=== PATIENT | female | born 1965 | race Caucasian/White ===

== ENCOUNTER 2020-04-24 16:07 | Outpatient (CLI) | payer BC, SELFPAY ==
--- NOTE | 2020-04-24 15:45 | US_ITS ---
WS: [id number] RENAL ULTRASOUND REASON FOR EXAM: RENAL U/S@[facility] 04/23/20@8:30AM. APPT TO FOLLOW TECHNIQUE: Grayscale and Doppler ultrasound examination of the kidneys. FINDINGS: Right kidney: Right kidney measures 11.9 cm x 4.3 cm x 4.5 cm. Cortex measured 1.11 cm along the surf leonidas of the right kidney a cyst measures 1.74 x 1.11 x 1.15 cm. Left kidney: Left kidney measures 9.8 cm x 5.3 cm x 5.5 cm. . No definite calcification to suggest r enal calculus. Additional cyst measures 0.97 cm x 0.80 cm x 1.14 cm.., A third cyst measures 0.94 x 1.02 x 1.01 cm. Cortex measures 1.66 cm The liver suggests fatty infiltration. The abdominal aorta was normal 1.89 cm. The urinary bladder was contracted IMPRESSION: Multiple benign-appearing cysts in both kidneys Normal size of both kidneys Normal cortex bilaterally Fatty infiltration of the liver
== END 2020-04-24 16:08 | disposition home or self-care (01) ==
LOC: RAD 16:18
PROVIDERS: PCP Nurse Practitioner Family; Visit Provider Urology
DX: N28.89 Other specified disorders of kidney and ureter (principal); N28.1 Cyst of kidney, acquired; K76.0 Fatty (change of) liver, not elsewhere classified
CPT/HCPCS: 76770

== ENCOUNTER → 2020-04-25 08:06 | Outpatient (BNVA) | payer BC, SELFPAY | PROVIDERS: PCP Nurse Practitioner Family; Visit Provider Urology | DX: N39.0 Urinary tract infection, site not specified (principal); B95.2 Enterococcus as the cause of diseases classified elsewhere; N28.1 Cyst of kidney, acquired | CPT/HCPCS: 81001 ==

== ENCOUNTER 2020-09-14 14:38 | Emergency (ER) | payer BC, SELFPAY ==
[2020-09-14 14:49] VITALS: BP 99/66; PULSE 91; RESP 20; TEMP 37.4; O2SAT 96; BMI 34.3
--- NOTE | 2020-09-14 15:00 | ECG_ITS ---
[facility] Test Date: 2020-09-14 Pat Name: Katherine Chavez Department: Room: Gender: Female Day Care Assistant: : 1965 Requested By: Huma De Order Number: [id number] Fernanda Mclaughlin MD: Gabe Rollins M.D. Measurements Intervals Ramsay Rate: 84 P: 67 AK: 143 QRS: 66 QRSD: 81 T: 88 QT: 370 QTc: 440 Interpretive Statements SINUS RHYTHM POSSIBLE LEFT ATRIAL ENLARGEMENT [-0.1mV P WAVE IN V1/V2] NONSPECIFIC ST & T-WAVE ABNORMALITY INTERPRETATION BASED ON A DEFAULT AGE OF 40 YEARS Compared to ECG 03/23/2018 10:42:52 No significant changes Electronically Signed On 09-14-2020 20:35:31 CDT by Gabe Rollins M.D. [id number]
--- NOTE | 2020-09-14 15:00 | XR_ITS ---
WS: [id number] Portable AP upright chest, 09/14/2020 Clinical Data: Dyspnea Comparison: Portable chest, 03/23/2018. Findings: No nodules, masses or effusions are seen. The heart is normal. The pulmonary vascularity is not increased. No pneumonia or pneumothorax is seen. The diaphragms are flattened. XR/XR chest 1V portable [id number] Impression: Hyperinflation.
[2020-09-14 15:26] LABS: ABG PCO2 35.6 mmHg (35-45); ABG PH Result 7.47 (7.35-7.45); Arterial Blood Gas Hematocrit 47.2 % (37-47); Base Excess ABG 2.3 mmol/L (-2.0-2.0); Blood Gas Allen Test Pos; Blood Gas Sample Type Arterial; HCO3 ABG 25.7 mmol/L (22-26); PO2 ABG 79.2 mmHg (80.0-100.0)
[2020-09-14 15:27] LABS: Blood Gas Operator Identificat ED; Blood Gas Sample Site Radial, left; Oxygen Device ROOM AIR
--- NOTE | 2020-09-14 15:35 | W.ED.COVID ---
HPI - COVID General: Chief Complaint: COVID symptoms Stated Complaint: COVID+, IN COVID TRIAGE ROOM Time Seen by Provider: 09/14/20 14:59 Source: patient Limitations: no limitations Triage information: Has fever, cough or shortness of breath. Exposure to COVID + person last 14 days History of Present Illness: HPI Narrative: Katherine is a 55-year-old female who comes in complaining of worsening generalized weakness, nausea, loss of appetite and shortness of breath. Patient has had symptoms for the past 6 days and 3 days into this illness she had a test which proved her to be positive for the Covid virus. Patient claims to have COPD and asthma which she said has been made worse by this virus. She has had a fever and worsening generalized flulike symptoms. Patient states she has been monitoring her pulse oximetry at home and she has been frequently finding herself in the mid to low 80s. She denies any hemoptysis she denies any chest pain. COVID 19 common symptoms: positive fever(s), chills, non-productive cough, dyspnea, fatigue and body aches; negative productive cough, headache(s), throat pain, nausea, vomiting or diarrhea COVID 19 other sytmptoms: negative chest pain or confusion COVID Results: No Data to Display Review of Systems Const: Reports: fever(s), chills, body aches, fatigue and malaise; Denies: diaphoresis Eyes: Denies: change in vision, blurry vision, photophobia, eye discomfort, eye discharge, eye redness or yellow eyes ENMT: Denies: throat pain, odynophagia, hoarseness, swelling of lips/tongue, ear or mastoid pain, ear discharge, change in hearing or nasal discharge Card: Denies: chest pain, palpitations, irregular heart rhythm, edema, lightheadedness, syncope, pre-syncope, dyspnea on exertion or orthopnea Resp: Reports: dyspnea and non-productive cough; Denies: productive cough, wheezing, hemoptysis or chest congestion GI: Denies: abdominal pain, nausea, vomiting, hematemesis, coffee ground emesis, heartburn, diarrhea, constipation, GI cramping, hematochezia or melena : Denies: flank pain, dysuria, urinary frequency, urinary urgency or hematuria Musc: Denies: neck pain, back pain, extremity pain, extremity swelling, joint pain, joint swelling, joint redness, joint warmth or joint stiffness Skin/Breast: Denies: rash, pruritus, erythema, skin pain or skin tenderness Neuro: Denies: headache(s), numbness in extremities, weakness in extremities, sensory changes, lack of coordination, difficulty walking, dizziness, vertigo, confusion, Slurred speech present or seizure-like activity Satya/Lymph: Denies: easy bruising, easy bleeding, petechiae, purpura or enlarged lymph nodes All/Imm: Denies: urticaria, throat swelling, tongue swelling, facial swelling or acute wheezing PFSH ED PFSH: Medical History Carcinoid bronchial adenoma of left lung Dyslipidemia Renal cyst Bilateral simple renal cysts. Confirmed with multiple modalities. No further work-up recommended April 2020. Tachycardia Surgical History H/O hernia repair abdominal H/O thyroidectomy S/P lobectomy of lung Family History Father , at age 90 Cancer Hyperlipidemia Hypertension Lung disease Mother , at age 60 Cancer Diabetes Hypertension Sister Psychiatric illness Denies family history of CAD (coronary artery disease) Clotting disorder Dementia Chronic kidney disease (CKD) Suicide Anesthesia complication Bleeding disorder Family history of premature coronary artery disease Stroke Social History Smoking and tobacco status: former smoker Quit status (tobacco): has quit using tobacco Second hand smoke exposure: No Alcohol intake: former Marital status: Current occupational status: retired History of recent travel: No Physical Exam Const: COMMON NORMALS: no acute distress, patient oriented x3, no limitations and alert GENERAL APPEARANCE: cooperative HENMT: COMMON NORMALS: normocephalic, atraumatic, external ears normal, EAC's normal and Normal external nose present HEAD & SCALP: normal to inspection, normocephalic and atraumatic FACE & SINUS: normal facial exam and face symmetric NOSE: Normal external nose present and Normal nares present EXTERNAL EAR: Yes external ears normal EXTERNAL AUDITORY CANAL: EAC's normal MOUTH: Normal oral and palatal mucosa present, lip normal and tongue normal Eye: COMMON NORMALS: Equal, round and reactive pupils present and conjunctivae normal GENERAL EYE: appearance normal, both eyes and all related structures ALIGNMENT: Yes alignment normal PERIORBITAL: periorbital findings normal EYELID: eyelids normal CONJUNCTIVA: Yes conjunctivae normal SCLERA: sclerae normal PUPIL: Yes Equal, round and reactive pupils present Neck/C-Spine: COMMON NORMALS: full ROM, no lymphadenopathy, supple, no meningeal signs and no JVD GENERAL: Yes normal visual inspection and Yes trachea midline Chest: COMMONS NORMALS: normal inspection of the chest and normal palpation of entire chest wall Resp: COMMON NORMALS: normal respiratory effort, No retractions, No use of accessory muscles and clear to auscultation bilaterally EFFORT & INSPECTION: Yes able to speak in complete sentences and Yes symmetric chest movement AUSCULTATION: clear to auscultation bilaterally, no crackles, no rales, no rhonchi and no wheezes Cardio: COMMON NORMALS: no JVD, regular rate, regular rhythm, S1 normal heart sound present and S2 normal heart sound present RATE: regular rate RHYTHM: regular rhythm HEART SOUNDS: S1 normal heart sound present, S2 normal heart sound present, no click, no gallops, no murmurs and no rubs GI: COMMON NORMALS: Soft to palpation and No hepatosplenomegaly present PALPATION: Yes Soft to palpation, No Tenderness to palpation present (GI), No Guarding due to palpation present (GI), No Rigid due to palpation, Yes No hepatosplenomegaly present, No Hernia present, No Palpable mass present and No Pulsatile mass present : COMMON NORMALS: Yes no CVA tenderness BLADDER/KIDNEY EXAM: Yes no CVA tenderness EXTERNAL FEMALE EXAM: No Hernia present Back/Pelvis: COMMON NORMALS: no CVA tenderness, thoracic and lumbar spine normal to inspection, no thoracic nor lumbar tenderness and thoraco-lumbar ROM normal Extremity: COMMON NORMALS: normal to inspection, full ROM, capillary refill normal, no joint enlargement, no clubbing, cyanosis or edema and no calf tenderness Neuro: COMMON NORMALS: patient oriented x3, CN's II-XII intact bilaterally, moves all extremities, no focal motor deficits and no sensory deficits noted SENSORIUM/ORIENTATION: Yes alert MENINGEAL SIGNS: Yes no meningeal signs SPEECH: speech normal Psych: COMMON NORMALS: mental status grossly normal, Normal thought process present, cooperative, normal affect, speech normal and activity/motor behavior normal SPEECH: Yes normal speech THOUGHT PROCESS: Normal thought process present Skin: COMMON NORMALS: no rashes or lesions noted, turgor normal, no jaundice, no petechiae and no mottling GENERAL SKIN EXAM: no rashes or lesions noted and turgor normal Course Vital Signs: Vital signs: Vital Signs Temperature 99.3 F 09/14/20 14:49 Pulse Rate 91 09/14/20 14:49 Respiratory Rate 20 H 09/14/20 14:49 Blood Pressure 99/66 09/14/20 14:49 Pulse Oximetry 96 09/14/20 17:33 MDM - COVID MDM Narrative Medical decision making narrative: Katherine is a very nice 55-year-old female comes in complaining of increasing shortness of breath since being diagnosed with a Covid virus. She is 5 to 6 days into this illness and does not show any sign of hypoxia here. Her pulse ox on room air is been in the high 90s the entire time she has been here. There chest x-ray is not tremendously remarkable and her lung sounds are clear. Patient's inflammatory markers are not tremendously elevated. She failed a home O2 eval so she does not qualify for home oxygen. Patient agrees to return if she worsens but otherwise she will follow-up with her regular doctor. She is already on steroids at home and she agrees to continue those. Lab Data Attestation: I reviewed the patient's lab results. Result diagrams: 09/14/20 16:24 09/14/20 16:24 Labs: Lab Results 09/14/20 09/14/20 09/14/20 Range/Units 15:16 16:24 16:24 WBC 12.1 H (4.0-10.0) 10^3/uL RBC 5.04 (4.1-5.3) 10^6/uL Hgb 15.3 (11.5-15.3) g/dL Hct 46.1 (37.0-47.0) % MCV 91.5 (81-99) fL MCH 30.4 (28.0-34.0) pg MCHC 33.2 (30.0-36.0) g/dL RDW 13.2 (12.1-15.1) % Plt Count 206 (130-400) 10^3/cmm MPV 11.6 H (7.4-10.4) fL Neut % (Auto) 86.2 % Lymph % (Auto) 6.0 % [place] % (Auto) 6.9 % Eos % (Auto) 0.0 % Baso % (Auto) 0.2 % Neut # (Auto) 10.44 H (1.8-7.7) 10^3/uL Lymph # (Auto) 0.7 L (0.8-4.8) 10^3/uL [place]ug[place] # (Auto) 0.8 (0.2-0.9) 10^3/uL Eos # (Auto) 0.0 (0.0-0.8) 10^3/uL Baso # (Auto) 0.0 (0.0-0.1) 10^3/uL Nucleated RBC % (auto) 0 % Nucleated RBCs # 0.0 /100WBC PT 11.60 L (12.1-14.9) SECONDS INR 0.83 (0.8-1.2) Fibrinogen 574 H (174-498) mg/dL D-Dimer 0.50 (0-0.59) ug/mIFEU Specimen Type Arterial Sample Site Radial, left ABG pH 7.47 H (7.35-7.45) ABG pCO2 35.6 (35-45) mmHg ABG pO2 79.2 L (80.0-100.0) mmHg ABG HCO3 25.7 (22-26) mmol/L ABG Base Excess 2.3 H (-2.0-2.0) mmol/L Guido Test Pos Hematocrit 47.2 H (37-47) % O2 Delivery Device Room air FiO2 21.0 % Retort Setter ID Ed Sodium (136-145) mmol/L Potassium (3.5-5.1) mmol/L Chloride (98-107) mmol/L Carbon Dioxide (22-29) mmol/L Anion Gap (5-19) BUN (6-20) mg/dL Creatinine (0.5-0.9) mg/dL GFR Calculation (90-130) mL/min Glucose (65-115) mg/dL Calculated Osmolality (285-295) mOsm/kg Lactic Acid (0.5-2.2) mmol/L Calcium (8.5-10.5) mg/dL Magnesium (1.7-2.3) mg/dL Total Bilirubin (0.15-1.2) mg/dL AST (0-32) U/L ALT (0-33) U/L Alkaline Phosphatase (35-105) IU/L Lactate Dehydrogenase (135-214) U/L Troponin T Gen 5 ng/L (0-10) ng/L C-Reactive Protein (0.0-4.9) mg/L NT-Pro-B Natriuret Pep (0-125) pg/mL Total Protein (6.6-8.7) g/dL Albumin (3.5-5.2) g/dL Globulin (1.3-4.6) g/dL Procalcitonin (0-0.5) ng/mL 09/14/20 09/14/20 09/14/20 Range/Units 16:24 16:24 16:24 WBC (4.0-10.0) 10^3/uL RBC (4.1-5.3) 10^6/uL Hgb (11.5-15.3) g/dL Hct (37.0-47.0) % MCV (81-99) fL MCH (28.0-34.0) pg MCHC (30.0-36.0) g/dL RDW (12.1-15.1) % Plt Count (130-400) 10^3/cmm MPV (7.4-10.4) fL Neut % (Auto) % Lymph % (Auto) % Refug[place] % (Auto) % Eos % (Auto) % Baso % (Auto) % Neut # (Auto) (1.8-7.7) 10^3/uL Lymph # (Auto) (0.8-4.8) 10^3/uL [place]ug[place] # (Auto) (0.2-0.9) 10^3/uL Eos # (Auto) (0.0-0.8) 10^3/uL Baso # (Auto) (0.0-0.1) 10^3/uL Nucleated RBC % (auto) % Nucleated RBCs # /100WBC PT (12.1-14.9) SECONDS INR (0.8-1.2) Fibrinogen (174-498) mg/dL D-Dimer (0-0.59) ug/mIFEU Specimen Type Sample Site ABG pH (7.35-7.45) ABG pCO2 (35-45) mmHg ABG pO2 (80.0-100.0) mmHg ABG HCO3 (22-26) mmol/L ABG Base Excess (-2.0-2.0) mmol/L Guido Test Hematocrit (37-47) % O2 Delivery Device FiO2 % Retort Setter ID Sodium 135 L (136-145) mmol/L Potassium 4.5 (3.5-5.1) mmol/L Chloride 94 L (98-107) mmol/L Carbon Dioxide 26 (22-29) mmol/L Anion Gap 19.5 H (5-19) BUN 20 (6-20) mg/dL Creatinine 0.8 (0.5-0.9) mg/dL GFR Calculation 74.5 L (90-130) mL/min Glucose 329 H (65-115) mg/dL Calculated Osmolality 295 (285-295) mOsm/kg Lactic Acid 2.4 H (0.5-2.2) mmol/L Calcium 9.4 (8.5-10.5) mg/dL Magnesium 1.9 (1.7-2.3) mg/dL Total Bilirubin 0.3 (0.15-1.2) mg/dL AST 26 (0-32) U/L ALT 35 H (0-33) U/L Alkaline Phosphatase 135 H (35-105) IU/L Lactate Dehydrogenase 316 H (135-214) U/L Troponin T Gen 5 ng/L 9 (0-10) ng/L C-Reactive Protein 15.1 H (0.0-4.9) mg/L NT-Pro-B Natriuret Pep 58 (0-125) pg/mL Total Protein 6.8 (6.6-8.7) g/dL Albumin 4.2 (3.5-5.2) g/dL Globulin 2.6 (1.3-4.6) g/dL Procalcitonin 0.08 (0-0.5) ng/mL COVID Results: No Data to Display Imaging Data CXR: Attestation: I personally reviewed and interpreted this imaging study as follows: My impression: Mild interstitial prominence. EKG Data EKG 1: Attestation: I personally reviewed and interpreted this EKG as follows: EKG interpretation date: 09/14/20 EKG interpretation time: 15:10 Interpretation: Normal sinus rhythm at 84 beats a minute, no blocks, normal intervals, normal axis, no acute ST-T wave changes. Discharge Plan Discharge Patient Disposition: Home Clinical Impression: Viral pneumonitis, COVID-19 virus infection Condition: Stable Prescriptions: New albuterol sulfate 90 mcg/actuation HFA aerosol inhaler 2 inh INHALATION Q4H PRN (Reason: shortness of breath or wheezing) Qty: 6.7 RF: 0 No Action Ozempic 0.25 mg or 0.5 mg(2 mg/1.5 mL) pen injector SUBCUT .weekly RF: 0 levothyroxine 50 mcg capsule 50 mcg PO DAILY RF: 0 cyanocobalamin (vitamin B-12) 1,000 mcg capsule 1,000 mcg PO DAILY RF: 0 atorvastatin 40 mg tablet 40 mg PO DAILY RF: 0 albuterol sulfate 2.5 mg /3 mL (0.083 %) solution for nebulization 2.5 mg INHALATION Q6H RF: 0 duloxetine 60 mg capsule,delayed release(DR/EC) 60 mg PO DAILY RF: 0 fluticasone propionate [Flonase Allergy Relief] 50 mcg/actuation spray,suspension 1 spray INTRANASAL DAILY RF: 0 metformin 500 mg tablet 1,000 mg PO BID RF: 0 montelukast 10 mg tablet 10 mg PO DAILY RF: 0 albuterol sulfate [ProAir HFA] 90 mcg/actuation HFA aerosol inhaler 1 inh INHALATION QID RF: 0 acetaminophen [Tylenol Extra Strength] 500 mg tablet 500 mg PO Q6H PRNRF: 0 cholecalciferol (vitamin D3) 10,000 unit tablet 10,000 unit PO DAILY RF: 0 insulin aspart U-100 [Novolog Flexpen U-100 Insulin] 100 unit/mL (3 mL) insulin pen 5 unit SUBCUT .COMPLEX RF: 0 Discharge Orders: Discharge Order (Routine); Ordered 09/14/20 Ordered By: Huma Spence Referrals: Sharmila Abreu FNP-C [Primary Care Provider] - 4-7 days Discharge Diet: Advance as tolerated Discharge Activity: Increase activity as tolerated Patient Instructions: Viral Pneumonia (ED) Activity Restrictions/Additional Instructions: Please return to the ER immediately for any of the signs or symptoms listed on your discharge instruction sheets, worsening/changing of your symptoms, you are not getting better as quickly as expected, or for ANY other cause or concerns. Continue your steroids as previously prescribed. Use your albuterol inhaler as needed. Return to the ER if your pulse oximetry stays below 90% persistently or your symptoms worsen or for any other cause for concern. Coding Level of Care Code ED Junior Database Administrator for Josue Chapman Exam Comprehensive
[2020-09-14 16:11] VITALS: O2SAT 95
[2020-09-14] MEDS: sodium chloride 0.9% 1,000 ML 75 ML IV (16:35)
[2020-09-14] MEDS: ondansetron 2 mg/ML SDV 2 mL 4 MG IV (16:35)
[2020-09-14] MEDS: dexamethasone 4 mg/mL INJ 10 MG IVP (16:35)
[2020-09-14 16:44] LABS: Basophils % 0.2 %; Hematocrit 46.1 % (37.0-47.0); Hemoglobin 15.3 g/dL (11.5-15.3); Lymphocytes # 0.7 10^3/uL (0.8-4.8); Mean Corpuscular HGB Conc 33.2 g/dL (30.0-36.0); Mean Corpuscular Hemoglobin 30.4 pg (28.0-34.0); Mean Corpuscular Volume 91.5 fL (81-99); Mean Platelet Volume 11.6 fL (7.4-10.4); Monocytes # 0.8 10^3/uL (0.2-0.9); Monocytes % 6.9 %; Neutrophils # 10.44 10^3/uL (1.8-7.7); Neutrophils % 86.2 %; Nucleated Red Blood Cells % 0 %; Platelet Count 206 10^3/cmm (130-400); Red Blood Count 5.04 10^6/uL (4.1-5.3); Red Cell Distribution Width 13.2 % (12.1-15.1); White Blood Count 12.1 10^3/uL (4.0-10.0)
[2020-09-14 17:00] LABS: INR 0.83 (0.8-1.2)
[2020-09-14 17:01] LABS: Fibrinogen 574 mg/dL (174-498)
[2020-09-14 17:03] LABS: Lactic Sepsis W/Reflex 2.4 mmol/L (0.5-2.2)
[2020-09-14 17:14] LABS: NT Pro B Type Natriuretic Pept 58 pg/mL (0-125); Procalcitonin 0.08 ng/mL (0-0.5)
[2020-09-14 17:18] LABS: Troponin T (5th) Once 9 ng/L (0-10)
[2020-09-14 17:26] LABS: Alanine Aminotransferase 35 U/L (0-33); Albumin Level 4.2 g/dL (3.5-5.2); Alkaline Phosphatase 135 IU/L (35-105); Anion Gap 19.5 (5-19); Aspartate Amino Transferase 26 U/L (0-32); Blood Urea Nitrogen 20 mg/dL (6-20); C Reactive Protein 15.1 mg/L (0.0-4.9); Calcium 9.4 mg/dL (8.5-10.5); Carbon Dioxide 26 mmol/L (22-29); Chloride 94 mmol/L (98-107); Globulin 2.6 g/dL (1.3-4.6); Glomerular Filtration Rate 74.5 mL/min (90-130); Glucose 329 mg/dL (65-115); Magnesium 1.9 mg/dL (1.7-2.3); Osmolality Calculated 295 mOsm/kg (285-295); Potassium 4.5 mmol/L (3.5-5.1); Sodium 135 mmol/L (136-145); Total Bilirubin 0.3 mg/dL (0.15-1.2); Total Protein 6.8 g/dL (6.6-8.7)
[2020-09-14 17:28] LABS: Lactate Dehydrogenase 316 U/L (135-214)
[2020-09-14 17:33] VITALS: O2SAT 90; O2SAT 96
[2020-09-14 17:58] VITALS: BP 119/75; PULSE 77; RESP 20; O2SAT 98
[2020-09-14 18:26] LABS: Reflex Lactate Order REFLEX LACTIC ORDERD
== END 2020-09-14 17:58 | disposition home or self-care (01) ==
PROVIDERS: Emergency Provider Emergency Medicine; PCP Nurse Practitioner Family
DX: U07.1 COVID-19 (principal); J12.89 Other viral pneumonia; Z79.4 Long term (current) use of insulin; Z87.891 Personal history of nicotine dependence; E78.5 Hyperlipidemia, unspecified
CPT/HCPCS: 12345; 36600; 71045; 80053; 82803; 83605; 83615; 83735; 83880; 84145; 84484; 85025; 85378; 85384; 85610; 86140; 87040; 93005; 96361; 96374; 96375; 99283; 99284; J1100; J2405; J7030

== ENCOUNTER 2020-09-22 18:05 | Emergency (ER) | payer BC, SELFPAY ==
[2020-09-22] VITALS (8 sets, daily range): BP systolic 79–123; BP diastolic 50–66; PULSE 104–110; RESP 14–23; TEMP 37.8; O2SAT 85–95; BMI 35.2
--- NOTE | 2020-09-22 18:29 | XRR_ITS ---
PROCEDURE INFORMATION: Exam: XR Chest, 1 View Exam date and time: 09/22/2020 6:35 PM Age: 55 years old Clinical indication: Shortness of breath; Additional info: SOB TECHNIQUE: Imaging protocol: XR of the chest Views: 1 view. COMPARISON: CR XR chest 1V portable [id number] 09/14/2020 3:15 PM FINDINGS: Lungs: Bilateral peripheral pulmonary infiltrates, right worse than left. Linear fibrosis demonstrated in the lower left lung. Pleural space: No pleural effusion demonstrated. No pneumothorax. Heart/Mediastinum: No cardiomegaly. Bones/joints: Unremarkable. XR/XR chest 1V portable [id number] IMPRESSION: 1. Bilateral peripheral pulmonary infiltrates, right worse than left. Consider nonspecific viral pneumonia. 2. The infiltrates are new when compared to 09/14/2020.
[2020-09-22 18:43] LABS: ABG PCO2 34.2 mmHg (35-45); ABG PH Result 7.54 (7.35-7.45); Arterial Blood Gas Hematocrit 41.2 % (37-47); Base Excess ABG 6.5 mmol/L (-2.0-2.0); Blood Gas Allen Test Pos; Blood Gas Operator Identificat MONRO; Blood Gas Sample Site Brachial, right; Blood Gas Sample Type Arterial; HCO3 ABG 29.1 mmol/L (22-26); HGB O2 Sat 90.4 % (95-100); Methemoglobin 0.9 % (0.4-1.5); Oxygen Device BIPAP; PO2 ABG 52.9 mmHg (80.0-100.0); Total Hemoglobin 13.5 g/dL (12-16)
--- NOTE | 2020-09-22 18:59 | ED_ITS ---
HPI - COVID General: Chief Complaint: COVID symptoms Stated Complaint: RESP DISTRESS Time Seen by Provider: 09/22/20 18:08 Triage information: Has fever, cough or shortness of breath . Exposure to COVID + person last 14 days History of Present Illness: HPI Narrative: 55-year-old lady who was just released from [facility]. She was there with COVID-19 for 5 days. She states that she did okay yesterday, but started having increasing shortness of breath today. She said that she got so short of breath at home that she called the ambulance. She denies any fever. She is got a cough. Nonproductive MD complaint: known COVID positive Prior covid testing: yes, results known COVID 19 common symptoms: positive cough, non-productive cough, dyspnea and headache(s); negative fever(s), nausea or vomiting COVID 19 other sytmptoms: positive requiring oxygen and confusion; negative chest pressure or chest pain Severity: moderate Pertinent comorbid conditions: diabetes and hypertension COVID Results: No Data to Display Review of Systems Const: Denies: fever(s) Card: Denies: chest pain Resp: Reports: dyspnea and non-productive cough GI: Denies: abdominal pain, nausea or vomiting Neuro: Reports: headache(s) and confusion PFS ED PFSH: Medical History (Updated 09/22/20 @ 23:22 by Nakul Vanegas DO) Carcinoid bronchial adenoma of left lung Dyslipidemia Renal cyst Bilateral simple renal cysts. Confirmed with multiple modalities. No further work-up recommended April 2020. Tachycardia Surgical History H/O hernia repair abdominal H/O thyroidectomy S/P lobectomy of lung Family History Father , at age 90 Cancer Hyperlipidemia Hypertension Lung disease Mother , at age 60 Cancer Diabetes Hypertension Sister Psychiatric illness Denies family history of CAD (coronary artery disease) Clotting disorder Dementia Chronic kidney disease (CKD) Suicide Anesthesia complication Bleeding disorder Family history of premature coronary artery disease Stroke Social History Smoking and tobacco status: former smoker Quit status (tobacco): has quit using tobacco Second hand smoke exposure: No Alcohol intake: former Marital status: Current occupational status: retired History of recent travel: No Physical Exam Const: GENERAL APPEARANCE: cooperative, in distress, lethargic and ill appearing ORIENTATION/CONSCIOUSNESS: Yes oriented to person, Yes oriented to place, Yes oriented to time and Yes lethargic HENMT: COMMON NORMALS: normocephalic, external ears normal and Normal external nose present HEAD & SCALP: normocephalic FACE & SINUS: normal facial exam NOSE: Normal external nose present and No nasal discharge present EXTERNAL EAR: Yes external ears normal THROAT: posterior oropharynx normal; no peritonsillar mass Eye: COMMON NORMALS: Equal, round and reactive pupils present, EOMs intact bilaterally and conjunctivae normal EYELID: eyelids normal CONJUNCTIVA: Yes conjunctivae normal PUPIL: Yes Equal, round and reactive pupils present Neck/C-Spine: GENERAL: No tracheal deviation Chest: COMMONS NORMALS: normal inspection of the chest CHEST: No tenderness Resp: COMMON NORMALS: clear to auscultation bilaterally EFFORT & INSPECTION: Yes tachypneic, Yes respiratory distress, No retractions, Yes uses accessory muscles and No tracheal deviation AUSCULTATION: clear to auscultation bilaterally, no rhonchi, no wheezes and diminished lung sounds Cardio: COMMON NORMALS: regular rate and regular rhythm RATE: regular rate RHYTHM: regular rhythm HEART SOUNDS: no murmurs PERIPHERAL PULSES: radial pulses present GI: INSPECTION: No abdominal distension AUSCULTATION: No Hyperactive bowel sounds present and No Hypoactive bowel sounds present PALPATION: No Guarding due to palpation present (GI) and No Rigid due to palpation PERCUSSION: no du llness to percussion and no tympanic to percussion Neuro: SENSORIUM/ORIENTATION: Yes oriented to person, Yes oriented to place, Yes oriented to time and Yes lethargic Psych: COMMON NORMALS: mental status grossly normal Skin: COMMON NORMALS: no rashes or lesions noted GENERAL SKIN EXAM: no rashes or lesions noted Course ED course: 55-year-old patient, known Covid positive. She presents with acute onset of shortness of breath today after being discharged from an outside facility yesterday. She apparently received dexamethasone, unknown or unclear whether she received remdesivir. She did not receive plasma. Room air satur ations were in the low 80s with respiratory distress. On nonrebreather, she came up to the mid 80s. She was placed on BiPAP on arrival with outstanding improvement. Her saturation currently is 97%. Heart rate 100. Blood pressure 98/64. Her inflammatory markers are elevated including a D-dimer over 20. CTA shows no pulmonary embolism but extensive bilateral infiltrates present. We have obtained a Covid positive result that she got as an outpatient. We have no Covid/ICU bed availability at this facility. We spoke with [facility] in [place], and they do have some availability in their [facility]. I spoke with the physician there, and we considered intubation for transport, but the patient is done so well on BiPAP that we would both like to leave her on that. [facility] is the only transport system that will allow patients to be transferred on BiPAP. They have been cleared to come get the patient once we have a bed number. Vital Signs: Vital signs: Vital Signs Temperature 100.1 F H 09/22/20 18:19 Pulse Rate 94 09/23/20 00:53 Respiratory Rate 20 H 09/23/20 00:53 Blood Pressure 103/63 09/23/20 00:53 Pulse Oximetry 97 09/23/20 00:53 MDM - COVID Lab Data Result diagrams: 09/22/20 18:45 09/22/20 18:45 Labs: Lab Results 09/22/20 09/22/20 09/22/20 Range/Units 18:30 18:45 18:45 WBC 12.1 H (4.0-10.0) 10^3/uL RBC 4.70 (4.1-5.3) 10^6/uL Hgb 14.1 (11.5-15.3) g/dL Hct 42.1 (37.0-47.0) % MCV 89.6 (81-99) fL MCH 30.0 (28.0-34.0) pg MCHC 33.5 (30.0-36.0) g/dL RDW 12.7 (12.1-15.1) % Plt Count 253 (130-400) 10^3/cmm MPV 10.7 H (7.4-10.4) fL Neut % (Auto) 80.4 % Lymph % (Auto) 9.4 % Hodgeman % (Auto) 4.1 % Eos % (Auto) 0.4 % Baso % (Auto) 0.6 % Neut # (Auto) 9.72 H (1.8-7.7) 10^3/uL Lymph # (Auto) 1.1 (0.8-4.8) 10^3/uL Hodgeman # (Auto) 0.5 (0.2-0.9) 10^3/uL Eos # (Auto) 0.1 (0.0-0.8) 10^3/uL Baso # (Auto) 0.1 (0.0-0.1) 10^3/uL Nucleated RBC % (auto) 0 % Nucleated RBCs # 0.0 /100WBC D-Dimer >= 20.00 H (0-0.59) ug/mIFEU Specimen Type Arterial Sample Site Brachial, right ABG pH 7.54 H (7.35-7.45) ABG pCO2 34.2 L (35-45) mmHg ABG pO2 52.9 L (80.0-100.0) mmHg ABG HCO3 29.1 H (22-26) mmol/L ABG Base Excess 6.5 H (-2.0-2.0) mmol/L Guido Test Pos Hematocrit 41.2 (37-47) % Hgb O2 Saturation 90.4 L (95-100) % Carboxyhemoglobin 1.0 (0.4-20.1) %THgb Methemoglobin 0.9 (0.4-1.5) % Total Hemoglobin 13.5 (12-16) g/dL O2 Delivery Device Bipap FiO2 100.0 % Piano Mechanic ID Monro Sodium (136-145) mmol/L Potassium (3.5-5.1) mmol/L Chloride (98-107) mmol/L Carbon Dioxide (22-29) mmol/L Anion Gap (5-19) BUN (6-20) mg/dL Creatinine (0.5-0.9) mg/dL GFR Calculation (90-130) mL/min Glucose (65-115) mg/dL Calculated Osmolality (285-295) mOsm/kg Lactic Acid (0.5-2.2) mmol/L Calcium (8.5-10.5) mg/dL Total Bilirubin (0.15-1.2) mg/dL AST (0-32) U/L ALT (0-33) U/L Alkaline Phosphatase (35-105) IU/L Lactate Dehydrogenase (135-214) U/L C-Reactive Protein (0.0-4.9) mg/L NT-Pro-B Natriuret Pep (0-125) pg/mL Total Protein (6.6-8.7) g/dL Albumin (3.5-5.2) g/dL Globulin (1.3-4.6) g/dL Procalcitonin (0-0.5) ng/mL 09/22/20 09/22/20 Range/Units 18:45 18:45 WBC (4.0-10.0) 10^3/uL RBC (4.1-5.3) 10^6/uL Hgb (11.5-15.3) g/dL Hct (37.0-47.0) % MCV (81-99) fL MCH (28.0-34.0) pg MCHC (30.0-36.0) g/dL RDW (12.1-15.1) % Plt Count (130-400) 10^3/cmm MPV (7.4-10.4) fL Neut % (Auto) % Lymph % (Auto) % Hodgeman % (Auto) % Eos % (Auto) % Baso % (Auto) % Neut # (Auto) (1.8-7.7) 10^3/uL Lymph # (Auto) (0.8-4.8) 10^3/uL Hodgeman # (Auto) (0.2-0.9) 10^3/uL Eos # (Auto) (0.0-0.8) 10^3/uL Baso # (Auto) (0.0-0.1) 10^3/uL Nucleated RBC % (auto) % Nucleated RBCs # /100WBC D-Dimer (0-0.59) ug/mIFEU Specimen Type Sample Site ABG pH (7.35-7.45) ABG pCO2 (35-45) mmHg ABG pO2 (80.0-100.0) mmHg ABG HCO3 (22-26) mmol/L ABG Base Excess (-2.0-2.0) mmol/L Guido Test Hematocrit (37-47) % Hgb O2 Saturation (95-100) % Carboxyhemoglobin (0.4-20.1) %THgb Methemoglobin (0.4-1.5) % Total Hemoglobin (12-16) g/dL O2 Delivery Device FiO2 % Piano Mechanic ID Sodium 136 (136-145) mmol/L Potassium 4.1 (3.5-5.1) mmol/L Chloride 95 L (98-107) mmol/L Carbon Dioxide 29 (22-29) mmol/L Anion Gap 16.1 (5-19) BUN 15 (6-20) mg/dL Creatinine 0.8 (0.5-0.9) mg/dL GFR Calculation 74.5 L (90-130) mL/min Glucose 202 H (65-115) mg/dL Calculated Osmolality 289 (285-295) mOsm/kg Lactic Acid 2.6 H (0.5-2.2) mmol/L Calcium 8.5 (8.5-10.5) mg/dL Total Bilirubin 0.5 (0.15-1.2) mg/dL AST 28 (0-32) U/L ALT 47 H (0-33) U/L Alkaline Phosphatase 106 H (35-105) IU/L Lactate Dehydrogenase 427 H (135-214) U/L C-Reactive Protein 26.2 H (0.0-4.9) mg/L NT-Pro-B Natriuret Pep 626 H (0-125) pg/mL Total Protein 5.4 L (6.6-8.7) g/dL Albumin 3.1 L (3.5-5.2) g/dL Globulin 2.3 (1.3-4.6) g/dL Procalcitonin 0.14 (0-0.5) ng/mL COVID Results: No Data to Display Critical Care Time Critical Care Time: Critical Care Time: Yes Total Critical Care Time: 40 Attestation: This case had a high probability of a clinically significant, sudden, or life threatening deterioration of this patient's condition which required my full and direct attention, intervention and personal management. Discharge Plan Discharge Patient Disposition: Xfer Other Clinical Impression: 2019 novel coronavirus–infected pneumonia (NCIP)#8211;infected pneumonia (NCIP) Sepsis with acute hypoxic respiratory failure Qualifiers: Sepsis type: sepsis due to unspecified organism Severe sepsis shock status: without septic shock Qualified Code(s): A41.9 - Sepsis, unspecified organism Condition: Stable Referrals: Sharmila Abreu FNP-C [Primary Care Provider] - Discharge Date/Time: 09/23/20 00:50 Coding Level of Care Code ED Glaze Maker for Chg Fwd Exam Comprehensive
[2020-09-22 19:26] LABS: Basophils # 0.1 10^3/uL (0.0-0.1); Basophils % 0.6 %; Eosinophils # 0.1 10^3/uL (0.0-0.8); Eosinophils % 0.4 %; Hematocrit 42.1 % (37.0-47.0); Hemoglobin 14.1 g/dL (11.5-15.3); Lymphocytes # 1.1 10^3/uL (0.8-4.8); Lymphocytes % 9.4 %; Mean Corpuscular HGB Conc 33.5 g/dL (30.0-36.0); Mean Corpuscular Volume 89.6 fL (81-99); Mean Platelet Volume 10.7 fL (7.4-10.4); Monocytes # 0.5 10^3/uL (0.2-0.9); Monocytes % 4.1 %; Neutrophils # 9.72 10^3/uL (1.8-7.7); Neutrophils % 80.4 %; Nucleated Red Blood Cells % 0 %; Platelet Count 253 10^3/cmm (130-400); Red Cell Distribution Width 12.7 % (12.1-15.1); White Blood Count 12.1 10^3/uL (4.0-10.0)
[2020-09-22] MEDS: sodium chloride 0.9% 500 ML 999 ML IV ×2 (19:36→22:03)
[2020-09-22 19:39] LABS: Lactic Sepsis W/Reflex 2.6 mmol/L (0.5-2.2)
[2020-09-22 19:49] LABS: NT Pro B Type Natriuretic Pept 626 pg/mL (0-125); Procalcitonin 0.14 ng/mL (0-0.5)
[2020-09-22 19:51] LABS: D Dimer >= 20.00 ug/mIFEU (0-0.59)
[2020-09-22 20:00] LABS: Alanine Aminotransferase 47 U/L (0-33); Albumin Level 3.1 g/dL (3.5-5.2); Alkaline Phosphatase 106 IU/L (35-105); Blood Urea Nitrogen 15 mg/dL (6-20); C Reactive Protein 26.2 mg/L (0.0-4.9); Calcium 8.5 mg/dL (8.5-10.5); Carbon Dioxide 29 mmol/L (22-29); Chloride 95 mmol/L (98-107); Globulin 2.3 g/dL (1.3-4.6); Glomerular Filtration Rate 74.5 mL/min (90-130); Glucose 202 mg/dL (65-115); Osmolality Calculated 289 mOsm/kg (285-295); Sodium 136 mmol/L (136-145); Total Bilirubin 0.5 mg/dL (0.15-1.2); Total Protein 5.4 g/dL (6.6-8.7)
[2020-09-22 20:01] LABS: Anion Gap 16.1 (5-19); Aspartate Amino Transferase 28 U/L (0-32); Lactate Dehydrogenase 427 U/L (135-214); Potassium 4.1 mmol/L (3.5-5.1)
[2020-09-22] MEDS: morphine 4 mg/mL SDV 1 mL IVP (20:04)
[2020-09-22] MEDS: ondansetron 2 mg/ML SDV 2 mL 4 MG IVP (20:04)
[2020-09-22 20:09] LABS: Slide Review Slide Review Perform
--- NOTE | 2020-09-22 21:19 | CTR_ITS ---
PROCEDURE INFORMATION: Exam: CT Angiography Chest With Contrast Exam date and time: 09/22/2020 9:27 PM Age: 55 years old Clinical indication: Abnormal findings; Abnormal diagnostic tests; Elevated d-dimer; Cough and shortness of breath; Prior surgery; Surgery type: Lt lung; Patient HX: HX lung CA, covid+; Additional info: SOB covid TECHNIQUE: Imaging protocol: Computed tomographic angiography of the chest with intravenous contrast. 3D rendering (Not supervised by radiologist): MIP and/or 3D reconstructed images were created by the technologist. Radiation optimization: All CT scans at this facility use at least one of these dose optimization techniques: automated exposure control; mA and/or kV adjustment per patient size (includes targeted exams where dose is matched to clinical indication); or iterative reconstruction. Contrast material: OMNI 350; Contrast volume: 85 ml; Contrast route: INTRAVENOUS (IV); COMPARISON: CT chest wo con [id number] 09/20/2018 10:12 AM RADIATION DOSE METRICS: Total DLP (mGy-cm): 626.75 FINDINGS: Pulmonary arteries: Pulmonary arteries are well opacified. Pulmonary arteries are normal in caliber. No filling defects are demonstrated. No evidence of pulmonary embolism. Aorta: The thoracic aorta appears unremarkable. No aneurysm or dissection demonstrated. Lungs: Extensive peripheral infiltrates are demonstrated throughout both lungs. Imaging features of COVID-19 pneumonia are present in the lungs. Other processes such as influenza pneumonia and organizing pneumonia, as can be seen with drug toxicity and connective tissue disease, can cause a similar imaging pattern. Pleural space: No pleural effusion or pneumothorax noted. Heart: No cardiomegaly. Minimal pericardial effusion noted. Lymph nodes: Nonspecific mediastinal lymph nodes are present, measuring up to 8 mm short axis. Bones/joints: Degenerative spine changes are noted. No fracture or other acute osseous abnormality. Soft tissues: The soft tissues appear unremarkable. CT/CT angio chest PE protcl [id number] IMPRESSION: 1. No evidence of pulmonary embolism. 2. No evidence of aortic dissection. 3. Extensive peripheral infiltrates are demonstrated throughout both lungs. Imaging features of COVID-19 pneumonia are present in the lungs. Other processes such as influenza pneumonia and organizing pneumonia, as can be seen with drug toxicity and connective tissue disease, can cause a similar imaging pattern. (Reference: Anatoliy) REFERENCES: Anatoliy Arceo, et al., Radiological Society of [place] Expert Consensus Statement on Reporting Chest CT Findings Related to COVID-19. Endorsed by the Society of Thoracic Radiology, the [place] [employer], and RSNA. Published February 15, 2020. Radiation Dose CTDIVOL = (mGy): DLP = 626.75 (mGy-cm)
--- NOTE | 2020-09-22 21:50 | PC.NURSE ---
automatic BP verified by manual BP. DR notified. vo for 500cc NS over 1hr
[2020-09-22] MEDS: iohexol 350 mg/mL 100 mL Btl IV (22:10)
--- NOTE | 2020-09-22 23:32 | PC.NURSE ---
rapid COVID swab not collected due to previous facility faxing pos test results
--- NOTE | 2020-09-23 00:07 | PC.NURSE ---
pt's spouse called with transfer info to [facility]
[2020-09-23 00:30] VITALS: BP 102/71; PULSE 94; RESP 21; O2SAT 97
[2020-09-23 00:53] VITALS: BP 103/63; PULSE 94; RESP 20; O2SAT 97
== END 2020-09-23 00:50 | disposition other institution (70) ==
PROVIDERS: Emergency Provider Emergency Medicine; PCP Nurse Practitioner Family
DX: A41.89 Other specified sepsis (principal); U07.1 COVID-19; J12.89 Other viral pneumonia; J96.01 Acute respiratory failure with hypoxia; E78.5 Hyperlipidemia, unspecified; Z87.891 Personal history of nicotine dependence
CPT/HCPCS: 12345; 36415; 36600; 71045; 71275; 80053; 82805; 83605; 83615; 83880; 84145; 85025; 85378; 86140; 94660; 96374; 96375; 99283; 99291; J2270; J2405; J7040; Q9967

== ENCOUNTER 2020-10-09 15:32 | Emergency (ER) | payer BC, SELFPAY ==
[2020-10-09 15:39] VITALS: BP 101/70; PULSE 101; RESP 18; TEMP 37.4; O2SAT 95; BMI 33.6
--- NOTE | 2020-10-09 16:06 | ECG_ITS ---
[facility] Test Date: 2020-10-09 Pat Name: Katherine Chavez Department: Room: Gender: Female Court Manager: : 1965 Requested By: Glenn Bruno Order Number: [id number] Arnoldo MD: Franca Osborne M.D. Measurements Intervals [facility] Rate: 103 P: 53 GA: 127 QRS: 47 QRSD: 80 T: 52 QT: 323 QTc: 424 Interpretive Statements SINUS TACHYCARDIA NONSPECIFIC T-WAVE ABNORMALITY WARNING: DATA QUALITY MAY AFFECT INTERPRETATION INTERPRETATION BASED ON A DEFAULT AGE OF 40 YEARS Compared to ECG 09/14/2020 15:10:57 Sinus rhythm no longer present T-wave abnormality still present Electronically Signed On 10-09-2020 21:39:56 DRIVER LICENSE AGENT by Franca Osborne M.D. [email or web address] [id number] f
--- NOTE | 2020-10-09 16:06 | CTR_ITS ---
PROCEDURE INFORMATION: Exam: CT Angiography Chest With Contrast Exam date and time: 10/09/2020 4:24 PM Age: 55 years old Clinical indication: Shortness of breath; Prior surgery; Surgery type: Left lung, hernia; Patient HX: Covid positive in August; Additional info: Chest pain post covid TECHNIQUE: Imaging protocol: Computed tomographic angiography of the chest with intravenous contrast. 3D rendering (Not supervised by radiologist): MIP and/or 3D reconstructed images were created by the technologist. Radiation optimization: All CT scans at this facility use at least one of these dose optimization techniques: automated exposure control; mA and/or kV adjustment per patient size (includes targeted exams where dose is matched to clinical indication); or iterative reconstruction. Contrast material: OMNI 350; Contrast volume: 74 ml; Contrast route: INTRAVENOUS (IV); COMPARISON: CT angio chest PE protcl [id number] 09/22/2020 10:04 PM RADIATION DOSE METRICS: Total DLP (mGy-cm): 617.12 FINDINGS: Pulmonary arteries: Normal. No pulmonary emboli. Aorta: Unremarkable. No aortic aneurysm. No aortic dissection. Lungs: Patchy peripheral ground-glass opacities in both lungs and right upper lobe consolidation have improved but not resolved. No new infiltrates. Pleural space: Unremarkable. No pneumothorax. No pleural effusion. Heart: Small pericardial effusion. Lymph nodes: Multiple subcentimeter mediastinal and hilar lymph nodes are most likely reactive. Kidneys and ureters: Benign fluid density cyst in the left kidney, Hounsfield units less than 20. No follow-up is recommended. Bones/joints: Unremarkable. No acute fracture. Soft tissues: Unremarkable. CT/CT angio chest PE protcl [id number] IMPRESSION: 1. No evidence for pulmonary embolus. 2. Improved bilateral multifocal pneumonia, consistent with residual COVID-19 pneumonia. COMMENTS: Consistent with the [place] [employer]'s Incidental Findings Committee white paper (J Am Gui Radiol 2018): Any incidental renal lesion less than 1 cm or classified as too small to characterize, or any incidental cystic renal lesion characterized as simple-appearing, is likely benign. No follow-up imaging is recommended for these lesions per consensus recommendations based on imaging criteria. Radiation Dose CTDIVOL = (mGy): DLP = 617.12 (mGy-cm)
--- NOTE | 2020-10-09 16:07 | W.ED.CHESTPA ---
Documented by User: Glenn Aldridge DO 10/10/20 06:20 HPI - Chest Pain General: Chief Complaint: Chest Pain Stated Complaint: FEVER, CP-POST COVID Time Seen by Provider: 10/09/20 15:51 History of Present Illness: HPI narrative: 55-year-old female presents to the emergency room complaining of chest discomfort. She had a little bit of a low-grade fever and some stomach upset as well. She is obese and diabetic. She was initially seen here on 11 after previously having tested positive for Covid. At that time she was in acute respiratory distress. She was treated with BiPAP she was transferred to [facility] after she was discharged she had initially done well she was seen here for what seem like exacerbation of symptoms she returns again today complaining of the above symptoms. MD complaint: chest pain Pertinent past history: other (Recently treated for COVID-19 in the last 30 days) Onset (ago): week(s) Timing of current episode: constant Prior episodes: Yes Onset: during rest Pain location: parasternal Pain radiation: back Severity: moderate Quality: sharp Relieving factors: nothing Exacerbating factors: nothing Context: other (Recent COVID-19) Associated symptoms: Reports abdominal pain, dyspnea, fever(s) and nausea; Deny diaphoresis, leg edema, palpitations, sense of impending doom, syncope or vomiting Treatment prior to arrival: none Review of Systems Const: Reports: fever(s); Denies: diaphoresis ENMT: Denies: throat pain, ear or mastoid pain, nasal discharge or nasal congestion Card: Denies: palpitations or syncope Resp: Reports: dyspnea GI: Reports: abdominal pain and nausea; Denies: vomiting : Denies: flank pain, difficulty voiding, dysuria, urinary frequency or urinary urgency Skin/Breast: Denies: rash or pruritus PFSH ED PFSH: Medical History (Updated 10/09/20 @ 18:58 by María James MD) Carcinoid bronchial adenoma of left lung Dyslipidemia Renal cyst Bilateral simple renal cysts. Confirmed with multiple modalities. No further work-up recommended April 2020. Tachycardia Surgical History H/O hernia repair abdominal H/O thyroidectomy S/P lobectomy of lung Family History Father , at age 90 Cancer Hyperlipidemia Hypertension Lung disease Mother , at age 60 Cancer Diabetes Hypertension Sister Psychiatric illness Denies family history of CAD (coronary artery disease) Clotting disorder Dementia Chronic kidney disease (CKD) Suicide Anesthesia complication Bleeding disorder Family history of premature coronary artery disease Stroke Social History Smoking and tobacco status: former smoker Quit status (tobacco): has quit using tobacco Second hand smoke exposure: No Alcohol intake: former Substance/Drug Use: never Marital status: Current occupational status: retired History of recent travel: No Physical Exam Const: COMMON NORMALS: no acute distress GENERAL APPEARANCE: cooperative and comfortable ORIENTATION/CONSCIOUSNESS: Yes awake, Yes oriented to person, Yes oriented to place and Yes oriented to time HENMT: COMMON NORMALS: normocephalic, atraumatic and hearing grossly normal bilaterally HEAD & SCALP: normocephalic and atraumatic Neck/C-Spine: COMMON NORMALS: no JVD Resp: COMMON NORMALS: normal respiratory effort, No retractions, No use of accessory muscles and clear to auscultation bilaterally AUSCULTATION: clear to auscultation bilaterally Cardio: COMMON NORMALS: no JVD, regular rate, regular rhythm and No murmurs present (Cardio) RATE: regular rate RHYTHM: regular rhythm GI: COMMON NORMALS: Soft to palpation and No hepatosplenomegaly present AUSCULTATION: Yes normoactive bowel sounds PALPATION: Yes Soft to palpation, No Tenderness to palpation present (GI), No Guarding due to palpation present (GI) and Yes No hepatosplenomegaly present Extremity: COMMON NORMALS: normal to inspection, capillary refill normal, no clubbing, cyanosis or edema, no calf tenderness and no pedal edema Neuro: SENSORIUM/ORIENTATION: Yes oriented to person, Yes oriented to place and Yes oriented to time Skin: COMMON NORMALS: no rashes or lesions noted GENERAL SKIN EXAM: no rashes or lesions noted Course Vital Signs: Vital signs: Vital Signs Temperature 99.4 F 10/09/20 15:39 Pulse Rate 99 10/09/20 19:14 Respiratory Rate 21 H 10/09/20 19:14 Blood Pressure 99/83 10/09/20 19:14 Pulse Oximetry 97 10/09/20 19:14 MDM - Chest Pain MDM Narrative: Medical decision making narrative: Care turned over to Dr. James at change of shift. See her note for final diagnosis and disposition. Lab Data: Labs: Lab Results 10/09/20 10/09/20 10/09/20 Range/Units 16:33 16:33 16:33 WBC 9.5 (4.0-10.0) 10^3/ uL RBC 4.54 (4.1-5.3) 10^6/u L Hgb 14.0 (11.5-15.3) g/dL Hct 41.8 (37.0-47.0) % MCV 92.1 (81-99) fL MCH 30.8 (28.0-34.0) pg MCHC 33.5 (30.0-36.0) g/dL RDW 13.4 (12.1-15.1) % Plt Count 239 (130-400) 10^3/c mm MPV 9.7 (7.4-10.4) fL Neut % (Auto) 69.7 % Lymph % (Auto) 18.0 % Vance % (Auto) 9.9 % Eos % (Auto) 1.3 % Baso % (Auto) 0.3 % Neut # (Auto) 6.58 (1.8-7.7) 10^3/u L Lymph # (Auto) 1.7 (0.8-4.8) 10^3/u L Vance # (Auto) 0.9 (0.2-0.9) 10^3/u L Eos # (Auto) 0.1 (0.0-0.8) 10^3/u L Baso # (Auto) 0.0 (0.0-0.1) 10^3/u L Nucleated RBC % (a uto) 0 % Nucleated RBCs # 0.0 /100WBC Sodium 138 (136-145) mmol/L Potassium 4.4 (3.5-5.1) mmol/L Chloride 99 (98-107) mmol/L Carbon Dioxide 25 (22-29) mmol/L Anion Gap 18.4 (5-19) BUN 12 (6-20) mg/dL Creatinine 0.7 (0.5-0.9) mg/dL GFR Calculation 86.9 L (90-130) mL/min Glucose 183 H (65-115) mg/dL Calculated Osmolal ity 290 (285-295) mOsm/k g Calcium 8.7 (8.5-10.5) mg/dL Total Bilirubin 0.5 (0.15-1.2) mg/dL AST 19 (0-32) U/L ALT 37 H (0-33) U/L Alkaline Phosphata se 121 H (35-105) IU/L Troponin T Baselin e 11 H (0-10) ng/L Troponin T 120 Min [place] (0-10) ng/L Delta Troponin T (0-10) ABS# Total Protein 6.1 L (6.6-8.7) g/dL Albumin 3.7 (3.5-5.2) g/dL Globulin 2.4 (1.3-4.6) g/dL Urine Color (Yellow) Urine Appearance (CLEAR) Urine pH (5-7) Ur Specific Gravit y (1.005-1.030) Urine Protein (Negative) Urine Glucose (UA) (Normal) Urine Ketones (Negative) Urine Blood (Negative) Urine Nitrate (Negative) Urine Bilirubin (Negative) Urine Urobilinogen (Negative) mg/dL Ur Leukocyte Mari ase (Negative) Urine RBC (0-2) /hpf Urine WBC (0-5) /hpf Ur Squamous Epith Cells (0-5) /hpf Amorphous Sediment Urine Bacteria (NONE) /hpf 10/09/20 10/09/20 Range/Units 17:05 18:01 WBC (4.0-10.0) 10^3/ uL RBC (4.1-5.3) 10^6/u L Hgb (11.5-15.3) g/dL Hct (37.0-47.0) % MCV (81-99) fL MCH (28.0-34.0) pg MCHC (30.0-36.0) g/dL RDW (12.1-15.1) % Plt Count (130-400) 10^3/c mm MPV (7.4-10.4) fL Neut % (Auto) % Lymph % (Auto) % Vance % (Auto) % Eos % (Auto) % Baso % (Auto) % Neut # (Auto) (1.8-7.7) 10^3/u L Lymph # (Auto) (0.8-4.8) 10^3/u L Vance # (Auto) (0.2-0.9) 10^3/u L Eos # (Auto) (0.0-0.8) 10^3/u L Baso # (Auto) (0.0-0.1) 10^3/u L Nucleated RBC % (a uto) % Nucleated RBCs # /100WBC Sodium (136-145) mmol/L Potassium (3.5-5.1) mmol/L Chloride (98-107) mmol/L Carbon Dioxide (22-29) mmol/L Anion Gap (5-19) BUN (6-20) mg/dL Creatinine (0.5-0.9) mg/dL GFR Calculation (90-130) mL/min Glucose (65-115) mg/dL Calculated Osmolal ity (285-295) mOsm/k g Calcium (8.5-10.5) mg/dL Total Bilirubin (0.15-1.2) mg/dL AST (0-32) U/L ALT (0-33) U/L Alkaline Phosphata se (35-105) IU/L Troponin T Baselin e (0-10) ng/L Troponin T 120 Min [place] 9.33 (0-10) ng/L Delta Troponin T -1.67 L (0-10) ABS# Total Protein (6.6-8.7) g/dL Albumin (3.5-5.2) g/dL Globulin (1.3-4.6) g/dL Urine Color Yellow (Yellow) Urine Appearance Sl cloudy A (CLEAR) Urine pH 5 (5-7) Ur Specific Gravit y 1.025 (1.005-1.030) Urine Protein Neg (Negative) Urine Glucose (UA) Norm (Normal) Urine Ketones Negative (Negative) Urine Blood Neg (Negative) Urine Nitrate Negative (Negative) Urine Bilirubin Neg (Negative) Urine Urobilinogen Norm (Negative) mg/dL Ur Leukocyte Mari ase Negative (Negative) Urine RBC None (0-2) /hpf Urine WBC 0-4 H (0-5) /hpf Ur Squamous Epith Cells 25-40 H (0-5) /hpf Amorphous Sediment Not Reportable Urine Bacteria 1+ H (NONE) /hpf Discharge Plan Discharge Patient Disposition: Home Clinical Impression: Type 2 diabetes mellitus without complication, with no history of insulin use, History of 2019 novel coronavirus disease (COVID-19) Chest pain Qualifiers: Chest pain type: unspecified Qualified Code(s): R07.9 - Chest pain, unspecified Condition: Stable Prescriptions: No Action Ozempic 0.25 mg or 0.5 mg(2 mg/1.5 mL) pen injector See Rx Instructions .ROUTE .COMPLEX RF: 0 levothyroxine 50 mcg capsule 50 mcg PO DAILY RF: 0 cyanocobalamin (vitamin B-12) 1,000 mcg capsule 1,000 mcg PO DAILY RF: 0 atorvastatin 40 mg tablet 40 mg PO DAILY RF: 0 albuterol sulfate 2.5 mg /3 mL (0.083 %) solution for nebulization 2.5 mg INHALATION Q6H RF: 0 duloxetine 60 mg capsule,delayed release(DR/EC) 60 mg PO DAILY RF: 0 fluticasone propionate [Flonase Allergy Relief] 50 mcg/actuation spray,suspension 1 spray INTRANASAL DAILY RF: 0 metformin 500 mg tablet 1,000 mg PO BID RF: 0 montelukast 10 mg tablet 10 mg PO DAILY RF: 0 albuterol sulfate [ProAir HFA] 90 mcg/actuation HFA aerosol inhaler 1 inh INHALATION QID RF: 0 acetaminophen [Tylenol Extra Strength] 500 mg tablet 500 mg PO Q6H PRN (Reason: Pain) RF: 0 insulin aspart U-100 [Novolog Flexpen U-100 Insulin] 100 unit/mL (3 mL) insulin pen 5 unit SUBCUT .COMPLEX RF: 0 Spiriva Respimat 2.5 mcg/actuation Mist 2 puff INHALATION DAILY RF: 0 Zinc and C 120-20 mg Lozenge 1 huseyin PO DAILY RF: 0 Symbicort See Rx Instructions .ROUTE .COMPLEX RF: 0 Vitamin D2 See Rx Instructions .ROUTE .COMPLEX RF: 0 albuterol sulfate 90 mcg/actuation HFA aerosol inhaler 2 inh INHALATION Q4H PRN (Reason: shortness of breath or wheezing) Qty: 6.7 RF: 0 Discharge Orders: Discharge Order (Routine); Ordered 10/09/20 Ordered By: María aJmes Referrals: Sharmila Abreu, [facility] [Primary Care Provider] - Discharge Diet: Advance as tolerated Discharge Activity: Resume usual activity Patient Instructions: Chest Pain (ED) Activity Restrictions/Additional Instructions: Your test results show improvement today. There is no evidence of heart disease. Continue to follow-up with your doctor during your recovery. Return to the ER if new or worse symptoms occur. Coding Level of Care Code ED Refractory Mixer for Josue Fwd Exam Comprehensive Documented by User: María James MD 10/09/20 19:04 HPI - Chest Pain General: Chief Complaint: Chest Pain Stated Complaint: FEVER, CP-POST COVID Time Seen by Provider: 10/09/20 15:51 PFSH ED PFSH: Medical History (Updated 10/09/20 @ 18:58 by María James MD) Carcinoid bronchial adenoma of left lung Dyslipidemia Renal cyst Bilateral simple renal cysts. Confirmed with multiple modalities. No further work-up recommended April 2020. Tachycardia Surgical History H/O hernia repair abdominal H/O thyroidectomy S/P lobectomy of lung Family History Father , at age 90 Cancer Hyperlipidemia Hypertension Lung disease Mother , at age 60 Cancer Diabetes Hypertension Sister Psychiatric illness Denies family history of CAD (coronary artery disease) Clotting disorder Dementia Chronic kidney disease (CKD) Suicide Anesthesia complication Bleeding disorder Family history of premature coronary artery disease Stroke Social History Smoking and tobacco status: former smoker Quit status (tobacco): has quit using tobacco Second hand smoke exposure: No Alcohol intake: former Substance/Drug Use: never Marital status: Current occupational status: retired History of recent travel: No Course ED course: I seemed care of this patient from Dr. Lewis at shift change. Her second troponin came back negative and her CT scan showed no PE as well as noting that there was improvement in the Covid pneumonia findings on the prior CTs. I discussed this with the patient. She was quite relieved to hear that there was evidence of improvement. She still using her oxygen at home. She feels like she is well enough to go home. She has resources for follow-up. Her is here to take her home. Vital Signs: Vital signs: Vital Signs Temperature 99.4 F 10/09/20 15:39 Pulse Rate 99 10/09/20 19:14 Respiratory Rate 21 H 10/09/20 19:14 Blood Pressure 99/83 10/09/20 19:14 Pulse Oximetry 97 10/09/20 19:14 MDM - Chest Pain Lab Data: Labs: Lab Results 10/09/20 10/09/20 10/09/20 Range/Units 16:33 16:33 16:33 WBC 9.5 (4.0-10.0) 10^3/ uL RBC 4.54 (4.1-5.3) 10^6/u L Hgb 14.0 (11.5-15.3) g/dL Hct 41.8 (37.0-47.0) % MCV 92.1 (81-99) fL MCH 30.8 (28.0-34.0) pg MCHC 33.5 (30.0-36.0) g/dL RDW 13.4 (12.1-15.1) % Plt Count 239 (130-400) 10^3/c mm MPV 9.7 (7.4-10.4) fL Neut % (Auto) 69.7 % Lymph % (Auto) 18.0 % Vance % (Auto) 9.9 % Eos % (Auto) 1.3 % Baso % (Auto) 0.3 % Neut # (Auto) 6.58 (1.8-7.7) 10^3/u L Lymph # (Auto) 1.7 (0.8-4.8) 10^3/u L Vance # (Auto) 0.9 (0.2-0.9) 10^3/u L Eos # (Auto) 0.1 (0.0-0.8) 10^3/u L Baso # (Auto) 0.0 (0.0-0.1) 10^3/u L Nucleated RBC % (a uto) 0 % Nucleated RBCs # 0.0 /100WBC Sodium 138 (136-145) mmol/L Potassium 4.4 (3.5-5.1) mmol/L Chloride 99 (98-107) mmol/L Carbon Dioxide 25 (22-29) mmol/L Anion Gap 18.4 (5-19) BUN 12 (6-20) mg/dL Creatinine 0.7 (0.5-0.9) mg/dL GFR Calculation 86.9 L (90-130) mL/min Glucose 183 H (65-115) mg/dL Calculated Osmolal ity 290 (285-295) mOsm/k g Calcium 8.7 (8.5-10.5) mg/dL Total Bilirubin 0.5 (0.15-1.2) mg/dL AST 19 (0-32) U/L ALT 37 H (0-33) U/L Alkaline Phosphata se 121 H (35-105) IU/L Troponin T Baselin e 11 H (0-10) ng/L Troponin T 120 Min [place] (0-10) ng/L Delta Troponin T (0-10) ABS# Total Protein 6.1 L (6.6-8.7) g/dL Albumin 3.7 (3.5-5.2) g/dL Globulin 2.4 (1.3-4.6) g/dL Urine Color (Yellow) Urine Appearance (CLEAR) Urine pH (5-7) Ur Specific Gravit y (1.005-1.030) Urine Protein (Negative) Urine Glucose (UA) (Normal) Urine Ketones (Negative) Urine Blood (Negative) Urine Nitrate (Negative) Urine Bilirubin (Negative) Urine Urobilinogen (Negative) mg/dL Ur Leukocyte Mari ase (Negative) Urine RBC (0-2) /hpf Urine WBC (0-5) /hpf Ur Squamous Epith Cells (0-5) /hpf Amorphous Sediment Urine Bacteria (NONE) /hpf 10/09/20 10/09/20 Range/Units 17:05 18:01 WBC (4.0-10.0) 10^3/ uL RBC (4.1-5.3) 10^6/u L Hgb (11.5-15.3) g/dL Hct (37.0-47.0) % MCV (81-99) fL MCH (28.0-34.0) pg MCHC (30.0-36.0) g/dL RDW (12.1-15.1) % Plt Count (130-400) 10^3/c mm MPV (7.4-10.4) fL Neut % (Auto) % Lymph % (Auto) % Vance % (Auto) % Eos % (Auto) % Baso % (Auto) % Neut # (Auto) (1.8-7.7) 10^3/u L Lymph # (Auto) (0.8-4.8) 10^3/u L Vance # (Auto) (0.2-0.9) 10^3/u L Eos # (Auto) (0.0-0.8) 10^3/u L Baso # (Auto) (0.0-0.1) 10^3/u L Nucleated RBC % (a uto) % Nucleated RBCs # /100WBC Sodium (136-145) mmol/L Potassium (3.5-5.1) mmol/L Chloride (98-107) mmol/L Carbon Dioxide (22-29) mmol/L Anion Gap (5-19) BUN (6-20) mg/dL Creatinine (0.5-0.9) mg/dL GFR Calculation (90-130) mL/min Glucose (65-115) mg/dL Calculated Osmolal ity (285-295) mOsm/k g Calcium (8.5-10.5) mg/dL Total Bilirubin (0.15-1.2) mg/dL AST (0-32) U/L ALT (0-33) U/L Alkaline Phosphata se (35-105) IU/L Troponin T Baselin e (0-10) ng/L Troponin T 120 Min [place] 9.33 (0-10) ng/L Delta Troponin T -1.67 L (0-10) ABS# Total Protein (6.6-8.7) g/dL Albumin (3.5-5.2) g/dL Globulin (1.3-4.6) g/dL Urine Color Yellow (Yellow) Urine Appearance Sl cloudy A (CLEAR) Urine pH 5 (5-7) Ur Specific Gravit y 1.025 (1.005-1.030) Urine Protein Neg (Negative) Urine Glucose (UA) Norm (Normal) Urine Ketones Negative (Negative) Urine Blood Neg (Negative) Urine Nitrate Negative (Negative) Urine Bilirubin Neg (Negative) Urine Urobilinogen Norm (Negative) mg/dL Ur Leukocyte Mari ase Negative (Negative) Urine RBC None (0-2) /hpf Urine WBC 0-4 H (0-5) /hpf Ur Squamous Epith Cells 25-40 H (0-5) /hpf Amorphous Sediment Not Reportable Urine Bacteria 1+ H (NONE) /hpf Discharge Plan Discharge Patient Disposition: Home Clinical Impression: Type 2 diabetes mellitus without complication, with no history of insulin use, History of 2019 novel coronavirus disease (COVID-19) Chest pain Qualifiers: Chest pain type: unspecified Qualified Code(s): R07.9 - Chest pain, unspecified Condition: Stable Prescriptions: No Action Ozempic 0.25 mg or 0.5 mg(2 mg/1.5 mL) pen injector See Rx Instructions .ROUTE .COMPLEX RF: 0 levothyroxine 50 mcg capsule 50 mcg PO DAILY RF: 0 cyanocobalamin (vitamin B-12) 1,000 mcg capsule 1,000 mcg PO DAILY RF: 0 atorvastatin 40 mg tablet 40 mg PO DAILY RF: 0 albuterol sulfate 2.5 mg /3 mL (0.083 %) solution for nebulization 2.5 mg INHALATION Q6H RF: 0 duloxetine 60 mg capsule,delayed release(DR/EC) 60 mg PO DAILY RF: 0 fluticasone propionate [Flonase Allergy Relief] 50 mcg/actuation spray,suspension 1 spray INTRANASAL DAILY RF: 0 metformin 500 mg tablet 1,000 mg PO BID RF: 0 montelukast 10 mg tablet 10 mg PO DAILY RF: 0 albuterol sulfate [ProAir HFA] 90 mcg/actuation HFA aerosol inhaler 1 inh INHALATION QID RF: 0 acetaminophen [Tylenol Extra Strength] 500 mg tablet 500 mg PO Q6H PRN (Reason: Pain) RF: 0 insulin aspart U-100 [Novolog Flexpen U-100 Insulin] 100 unit/mL (3 mL) insulin pen 5 unit SUBCUT .COMPLEX RF: 0 Spiriva Respimat 2.5 mcg/actuation Mist 2 puff INHALATION DAILY RF: 0 Zinc and C 120-20 mg Lozenge 1 huseyin PO DAILY RF: 0 Symbicort See Rx Instructions .ROUTE .COMPLEX RF: 0 Vitamin D2 See Rx Instructions .ROUTE .COMPLEX RF: 0 albuterol sulfate 90 mcg/actuation HFA aerosol inhaler 2 inh INHALATION Q4H PRN (Reason: shortness of breath or wheezing) Qty: 6.7 RF: 0 Discharge Orders: Discharge Order (Routine); Ordered 10/09/20 Ordered By: María James Referrals: Sharmila Abreu, [facility] [Primary Care Provider] - Discharge Diet: Advance as tolerated Discharge Activity: Resume usual activity Patient Instructions: Chest Pain (ED) Activity Restrictions/Additional Instructions: Your test results show improvement today. There is no evidence of heart disease. Continue to follow-up with your doctor during your recovery. Return to the ER if new or worse symptoms occur. Coding Level of Care Code ED Refractory Mixer for Josue Fwd Exam Comprehensive
[2020-10-09 16:43] LABS: Basophils % 0.3 %; Eosinophils # 0.1 10^3/uL (0.0-0.8); Eosinophils % 1.3 %; Hematocrit 41.8 % (37.0-47.0); Lymphocytes # 1.7 10^3/uL (0.8-4.8); Mean Corpuscular HGB Conc 33.5 g/dL (30.0-36.0); Mean Corpuscular Hemoglobin 30.8 pg (28.0-34.0); Mean Corpuscular Volume 92.1 fL (81-99); Mean Platelet Volume 9.7 fL (7.4-10.4); Monocytes # 0.9 10^3/uL (0.2-0.9); Monocytes % 9.9 %; Neutrophils # 6.58 10^3/uL (1.8-7.7); Neutrophils % 69.7 %; Nucleated Red Blood Cells % 0 %; Platelet Count 239 10^3/cmm (130-400); Red Blood Count 4.54 10^6/uL (4.1-5.3); Red Cell Distribution Width 13.4 % (12.1-15.1); White Blood Count 9.5 10^3/uL (4.0-10.0)
[2020-10-09] MEDS: iohexol 350 mg/mL 100 mL Btl IV (17:03)
[2020-10-09 17:29] LABS: Alanine Aminotransferase 37 U/L (0-33); Albumin Level 3.7 g/dL (3.5-5.2); Alkaline Phosphatase 121 IU/L (35-105); Anion Gap 18.4 (5-19); Aspartate Amino Transferase 19 U/L (0-32); Blood Urea Nitrogen 12 mg/dL (6-20); Calcium 8.7 mg/dL (8.5-10.5); Carbon Dioxide 25 mmol/L (22-29); Chloride 99 mmol/L (98-107); Globulin 2.4 g/dL (1.3-4.6); Glomerular Filtration Rate 86.9 mL/min (90-130); Glucose 183 mg/dL (65-115); Osmolality Calculated 290 mOsm/kg (285-295); Potassium 4.4 mmol/L (3.5-5.1); Sodium 138 mmol/L (136-145); Total Bilirubin 0.5 mg/dL (0.15-1.2); Total Protein 6.1 g/dL (6.6-8.7)
[2020-10-09 17:29] LABS: Add Urine Microscopic? YES; Bilirubin Urine Neg (Negative); Blood Urine Neg (Negative); Glucose Urine UA Norm (Normal); Ketones Urine Negative (Negative); Leukocyte Esterase Urine Negative (Negative); Nitrate Urine Negative (Negative); Protein Urine Neg (Negative); Specific Gravity, Urine 1.025 (1.005-1.030); Urine Color Yellow (Yellow); Urobilinogen Urine Norm (Negative); pH Urine 5 (5-7)
[2020-10-09 17:30] LABS: Troponin(5th) Baseline 11 ng/L (0-10)
[2020-10-09 17:31] LABS: Bacteria Urine 1+ /hpf; Squamous Epithelial Cell Urine 25-40 /hpf (0-5); WBC Urine 0-4 /hpf (0-5)
[2020-10-09 17:32] LABS: Add Urine Culture? No
--- NOTE | 2020-10-09 18:06 | ECG_ITS ---
[facility] Test Date: 2020-10-09 Pat Name: Katherine Chavez Department: Room: Gender: Female Rod Buster: : 1965 Requested By: Glenn Bruno Order Number: [id number] Arnoldo MD: Franca Osborne M.D. Measurements Intervals [place] Rate: 105 P: 49 ME: 140 QRS: 52 QRSD: 78 T: 56 QT: 300 QTc: 397 Interpretive Statements SINUS TACHYCARDIA NONSPECIFIC T-WAVE ABNORMALITY Compared to ECG 10/09/2020 15:47:57 No significant changes Electronically Signed On 10-09-2020 21:49:14 PROCESSOR INSPECTOR by Franca Osborne M.D. [id number]
[2020-10-09 18:30] VITALS: BP 114/71; PULSE 104; RESP 16; O2SAT 96
[2020-10-09 18:36] LABS: Troponin 5 2HR 9.33 ng/L (0-10)
[2020-10-09 18:57] LABS: Troponin 5 2HR Delta -1.67 ABS# (0-10)
[2020-10-09 19:14] VITALS: BP 99/83; PULSE 99; RESP 21; O2SAT 97
== END 2020-10-09 19:15 | disposition home or self-care (01) ==
PROVIDERS: Family Medicine; Emergency Provider Emergency Medicine; PCP Nurse Practitioner Family
DX: R07.9 Chest pain, unspecified (principal); E11.9 Type 2 diabetes mellitus without complications; Z86.19 Personal history of other infectious and parasitic diseases; Z79.4 Long term (current) use of insulin; E78.5 Hyperlipidemia, unspecified; Z87.891 Personal history of nicotine dependence
CPT/HCPCS: 12345; 36415; 71275; 80053; 81001; 84484; 85025; 93005; 99282; 99283; Q9967

== ENCOUNTER → 2023-02-04 10:39 | Outpatient (BNVA) | payer OTHER, SELFPAY | PROVIDERS: PCP Nurse Practitioner Family; Visit Provider Podiatrist Foot & Ankle Surgery | DX: E11.42 Type 2 diabetes mellitus with diabetic polyneuropathy (principal); M21.621 Bunionette of right foot; M21.622 Bunionette of left foot; G62.9 Polyneuropathy, unspecified; Z79.84 Long term (current) use of oral hypoglycemic drugs | CPT/HCPCS: 73630 ==

== ENCOUNTER 2023-02-25 11:45 | Outpatient (CLI) | payer OTHER, SELFPAY | END 2023-02-25 11:46 | disposition home or self-care (01) | LOC: SPT 11:46 | PROVIDERS: PCP Nurse Practitioner Family; Visit Provider Podiatrist Foot & Ankle Surgery | DX: Z46.89 Encounter for fitting and adjustment of other specified devices (principal); M79.671 Pain in right foot | CPT/HCPCS: 97760; L4397 ==

== ENCOUNTER 2023-06-30 10:52 | Outpatient (CLI) | payer OTHER, SELFPAY ==
--- NOTE | 2023-06-30 11:06 | CTR_ITS ---
PROCEDURE INFORMATION: Exam: CT Chest With Contrast; Diagnostic Exam date and time: 06/30/2023 11:19 AM Age: 58 years old Clinical indication: Condition or disease; Lung condition and disease; Cancer of the lung; Unspecified; Follow-up oncological assessment; Prior surgery; Surgery date: 6+ months; Surgery type: Left lung; Additional info: History of malignant carcinoid tumor of bronchus and lung TECHNIQUE: Imaging protocol: Diagnostic computed tomography of the chest with contrast. Radiation optimization: All CT scans at this facility use at least one of these dose optimization techniques: automated exposure control; mA and/or kV adjustment per patient size (includes targeted exams where dose is matched to clinical indication); or iterative reconstruction. Contrast material: OMNI 350; Contrast volume: 95 ml; Contrast route: INTRAVENOUS (IV); REPORTING DATA: Count of CT and Cardiac NM exams in prior 12 months: This patient has received 0 known CTs and 0 known cardiac nuclear medicine studies in the 12 months prior to the current study. 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 Surgical clips left thyroid bed. Thyroid hypodensity measuring 5.4 mm (difficult to compare due to contrast streak artifact on prior study). No specific follow-up imaging is recommended. Lungs: Lingular postsurgical changes. A 5.0 x 3.6 mm noncalcified pulmonary nodule is redemonstrated in the anterior basilar segment of the lingula (LOC 175), stable (remeasured on prior study). Lateral left basilar pulmonary parenchymal scarring. Mild right upper lobe pulmonary parenchymal scarring.No destructive bony process identified. Pleural spaces: No pneumothorax. No pleural effusion. Heart: Interval increase in fluid within the superior pericardial recesses, overall volume is stable. Coronary arteries: No coronary artery calcifications. Lymph nodes: No enlarged lymph nodes. Vasculature: Unremarkable. No aortic aneurysm. Gallbladder and bile ducts: Contracted gallbladder. Spleen: A small inferior splenule is present. Bones/joints: No destructive bony process identified. Multilevel mid-lower thoracic spine chronic vertebral body endplate herniations. Soft tissues: Unremarkable. CT/CT chest w con* [id number] IMPRESSION: 1. Lingular postsurgical changes. 2. Stable small left lower lobe noncalcified pulmonary nodule. 3. Small stable pericardial effusion. 4. No specific findings of active thoracic neoplasia.
[2023-06-30] MEDS: iohexol 350 mg/mL 500 mL Btl (per mL) IV (11:21)
== END 2023-06-30 10:53 | disposition home or self-care (01) ==
PROVIDERS: PCP Family Medicine; Visit Provider Student in an Organized Health Care Education/Training Program
DX: Z85.118 Personal history of other malignant neoplasm of bronchus and lung (principal); R91.1 Solitary pulmonary nodule; I31.39 Other pericardial effusion (noninflammatory); Z98.890 Other specified postprocedural states
CPT/HCPCS: 71260; Q9967

== ENCOUNTER 2023-12-16 12:57 | Outpatient (CLI) | payer OTHER, SELFPAY ==
--- NOTE | 2023-12-16 13:02 | MM_ITS ---
WS: [id number] BILATERAL 3D TOMOSYNTHESIS DIGITAL SCREENING MAMMOGRAPHY WITH CAD CLINICAL INFORMATION: SCREENING HISTORY: Screening mammogram. No current complaints. COMPARISON: 2022 TECHNIQUE: Bilateral CC and MLO views. FINDINGS: Scattered fibroglandular densities bilaterally. No suspicious focal mass, asymmetry, calcifications, or architectural distortion. No evidence of malignancy. IMPRESSION: MM/[place] [id number] BI-RADS: 1-Negative FOLLOW UP: 1 Year Follow-up Recommend return to annual screening mammography.
== END 2023-12-16 12:58 | disposition home or self-care (01) ==
PROVIDERS: PCP Family Medicine; Visit Provider Family Medicine
DX: Z12.31 Encounter for screening mammogram for malignant neoplasm of breast (principal); R92.323 Mammographic fibroglandular density, bilateral breasts
CPT/HCPCS: 77063; 77067

== ENCOUNTER → 2024-01-20 15:29 | Outpatient (BNVA) | payer OTHER, SELFPAY | PROVIDERS: PCP Family Medicine; Referring Provider Family Medicine; Visit Provider Internal Medicine Cardiovascular Disease | DX: R07.9 Chest pain, unspecified (principal); R06.02 Shortness of breath | CPT/HCPCS: 36415; 80048; 83880; 93005 ==

== ENCOUNTER 2024-01-27 10:51 | Outpatient (CLI) | payer OTHER, SELFPAY ==
--- NOTE | 2024-01-27 11:15 | USCV_ITS ---
Katherine Chavez Age: 58 Gender: F : 1965 Exam Date: 01/27/2024 11:23 Ordering Phys: Gabe Rollins MD ([email or web address]) Technologist: CT Exam Location: [facility] [place] Indication: chf BP: 118 / 76 HR: Rhythm: Sinus Technical Quality: Poor because of body habitus MEASUREMENTS (Male / Female) Normal Values 2D ECHO LVOT Diameter 1.9 cm LV Ejection Fraction MOD 2C 76.7 % LV Ejection Fraction 2C AL 77.7 % LA Diameter 3.3 cm Aorta at Sinotubular Diameter 2.3 cm IVC Diameter 1.8 cm M-MODE LA Ao Ratio MM 1.5 AV Cusp Separation MM 1.9 cm DOPPLER AV Peak Velocity 159.0 cm/s LVOT Peak Velocity 115.0 cm/s AV Area Cont Eq vti 1.9 cm squared AV Area Cont Eq pk 2.0 cm squared MV Peak Velocity 127.0 cm/s MV Area PHT 3.2 cm squared Mitral E to A Ratio 1.1 TV Peak E Velocity 75.0 cm/s Right Atrial Pressure 3.0 mmHg PV Peak Velocity 76.3 cm/s FINDINGS Left Ventricle Normal left ventricular size and systolic function, EF 77%. No regional wall motion Grade II/IV diastolic dysfunction, moderately elevated filling pressures. Right Ventricle The right ventricle is normal in size and function. Right Atrium The right atrium is normal in size. Left Atrium The left atrium is normal in size. Mitral Valve Mild mitral valve regurgitation. Aortic Valve No gross abnormalities noted Tricuspid Valve No gross abnormalities noted.trace tricuspid valve regurgitation. Pulmonic Valve Pulmonic valve not well visualized. Pericardium Normal pericardium without effusion. Aorta Normal ascending aorta dimension. IVC The inferior vena cava appears normal. CONCLUSIONS Normal left ventricular size and systolic function, EF 77%. No regional wall motion Grade II/IV diastolic dysfunction, moderately elevated filling pressures. Mild mitral valve regurgitation. Trace tricuspid valve regurgitation. There is no pericardial effusion. There are no intracardiac masses. Compared to the study from 03/02/2019, there may not be significant change Dr Gabe Rollins MD [facility] (Electronically Signed) Final Date: 31 January 2024 18:37 S
== END 2024-01-27 10:52 | disposition home or self-care (01) ==
LOC: RAD 10:52
PROVIDERS: PCP Family Medicine; Visit Provider Internal Medicine Cardiovascular Disease
DX: I34.0 Nonrheumatic mitral (valve) insufficiency (principal)
CPT/HCPCS: 93306